=== PATIENT | female | born 1990 | race Two or more races ===

== ENCOUNTER → 2022-04-23 | Outpatient (CLI) | payer MEDICAID ==
[2022-04-23 10:46] LABS: Basophils # (auto) 0 10 ^3/uL (0-0.2); Basophils % (auto) 0.5 % (0.0-2.0); Eosinophils # (auto) 0.1 10 ^3/uL (0-0.8); Eosinophils % (auto) 1.3 % (0.0-7.0); Hematocrit 40.5 % (36.0-46.0); Hemoglobin 13.4 g/dL (12.2-16.2); Lymphocytes # (auto) 2.6 10 ^3/uL (0.4-5.4); Lymphocytes % (auto) 28.4 % (10.0-50.0); Mean Corpuscular Hemoglobin 29.5 pg (28.0-32.0); Mean Corpuscular Hgb Conc. 33.2 g/dL (32.0-36.0); Mean Corpuscular Volume 88.9 fL (80.0-100.0); Monocytes # (auto) 0.6 10 ^3/uL (0-1.3); Monocytes % (auto) 6.3 % (0.0-12.0); Neutrophils # (auto) 5.9 10 ^3/uL (1.6-8.6); Neutrophils % (auto) 63.5 % (37.0-80.0); Nucleated Red Blood Cells % 0.1 %; Red Blood Cells 4.55 10^6/uL (4.0-5.20); Red Cell Distribution Width 12.6 % (11.8-14.3); White Blood Cell 9.3 10^3/uL (4.4-10.8)
[2022-04-23 11:53] LABS: Alcohol, Urine < 3.0 mg/dL (0-10); Amphetamine Screen, Urine NEGATIVE (NEGATIVE); Barbiturate Scree,Urine NEGATIVE (NEGATIVE); Benzodiazephine Screen, Urine NEGATIVE (NEGATIVE); Cannabinoid Screen, Urine NEGATIVE (NEGATIVE); Cocaine Screen, Urine NEGATIVE (NEGATIVE); Opiate Scree,Urine NEGATIVE (NEGATIVE); Phencyclidine Screen, Urine NEGATIVE (NEGATIVE)
[2022-04-24 06:07] LABS: RPR Non Reactive (Non Reactive)
== END | disposition home or self-care (01) ==
LOC: LAB 09:53
PROVIDERS: ATTEND Obstetrics & Gynecology
DX: Z34.80 Encounter for supervision of other normal pregnancy, unspecified trimester (principal); N39.0 Urinary tract infection, site not specified; Z31.430 Encounter of female for testing for genetic disease carrier status for procreative management; Z3A.00 Weeks of gestation of pregnancy not specified
CPT/HCPCS: 36415; 80307; 83036; 84112; 84702; 85025; 86592; 86703; 86762; 86850; 86900; 86901; 87086; 87340

== ENCOUNTER 2022-10-16 11:41 | Observation (INO) | payer MEDICAID | END 2022-10-16 13:00 | disposition home or self-care (01) | LOC: LDRP 11:41 | PROVIDERS: ADMIT Obstetrics & Gynecology; ATTEND Obstetrics & Gynecology | DX: O99.891 Other specified diseases and conditions complicating pregnancy (principal); N13.30 Unspecified hydronephrosis; Z3A.34 34 weeks gestation of pregnancy | CPT/HCPCS: 59025; 81002; 94760; G0378 ==

== ENCOUNTER 2022-10-23 08:55 | Observation (INO) | payer MEDICAID ==
[~2022-10-23] VITALS: Ht 160 cm; Wt 82.6 kg
== END 2022-10-23 10:13 | disposition home or self-care (01) ==
LOC: LDRP 08:55
PROVIDERS: ADMIT Obstetrics & Gynecology; ATTEND Obstetrics & Gynecology
DX: O24.419 Gestational diabetes mellitus in pregnancy, unspecified control (principal); O99.891 Other specified diseases and conditions complicating pregnancy; N13.30 Unspecified hydronephrosis; Z3A.35 35 weeks gestation of pregnancy
CPT/HCPCS: 59025; 81002; 94760; G0378

== ENCOUNTER 2022-10-30 09:02 | Observation (INO) | payer MEDICAID | END 2022-10-30 10:43 | disposition home or self-care (01) | LOC: LDRP 09:02 → UNDOADMOB 09:02 → LDRP 09:48 → UNDODISOB 10:43 | PROVIDERS: ADMIT Obstetrics & Gynecology; ATTEND Obstetrics & Gynecology | DX: O99.891 Other specified diseases and conditions complicating pregnancy (principal); N13.30 Unspecified hydronephrosis; O09.33 Supervision of pregnancy with insufficient antenatal care, third trimester; O35.8XX0 Maternal care for other (suspected) fetal abnormality and damage, not applicable or unspecified; Z3A.36 36 weeks gestation of pregnancy | CPT/HCPCS: 59025; 81002; 94760 ==

== ENCOUNTER 2022-11-06 09:12 | Observation (INO) | payer MEDICAID ==
[2022-11-06] MEDS ORDERED: PREN1TAB71 OR (09:58)
== END 2022-11-06 10:38 | disposition home or self-care (01) ==
LOC: UNDOADMOB 09:12 → LDRP 09:12 → UNDODISOB 10:38
PROVIDERS: ADMIT Obstetrics & Gynecology; ATTEND Obstetrics & Gynecology
DX: O99.891 Other specified diseases and conditions complicating pregnancy (principal); N13.30 Unspecified hydronephrosis; Z3A.37 37 weeks gestation of pregnancy
CPT/HCPCS: 59025; 81002; 94760; G0378

== ENCOUNTER 2022-11-13 08:55 | Observation (INO) | payer MEDICAID ==
[~2022-11-13 08:55] MED LIST: PREN1TAB71 OR
== END 2022-11-13 10:30 | disposition home or self-care (01) ==
LOC: LDRP 08:55 → UNDOADMOB 08:55 → LDRP 09:03 → UNDODISOB 10:30
PROVIDERS: ADMIT Obstetrics & Gynecology; ATTEND Obstetrics & Gynecology
DX: O99.891 Other specified diseases and conditions complicating pregnancy (principal); N13.30 Unspecified hydronephrosis; Z3A.38 38 weeks gestation of pregnancy
CPT/HCPCS: 59025; 81002; 94760; G0378

== ENCOUNTER 2022-11-20 09:00 | Observation (INO) | payer MEDICAID ==
[2022-11-20 11:37] LABS: Fern Testing Negative
== END 2022-11-20 12:32 | disposition home or self-care (01) ==
LOC: UNDOADMOB 09:00 → LDRP 09:00 → UNDODISOB 12:32
PROVIDERS: ADMIT Obstetrics & Gynecology; ATTEND Obstetrics & Gynecology
DX: O99.891 Other specified diseases and conditions complicating pregnancy (principal); N13.30 Unspecified hydronephrosis; O26.893 Other specified pregnancy related conditions, third trimester; N89.8 Other specified noninflammatory disorders of vagina; Z3A.39 39 weeks gestation of pregnancy
CPT/HCPCS: 59025; 76818; 81002; 84112; 96360; 96361; G0378; Q0114

== ENCOUNTER 2022-11-23 23:54 | Inpatient (IN) | payer MEDICAID ==
[~2022-11-23] VITALS: Ht 160 cm; Wt 84.4 kg
[2022-11-24] MEDS ORDERED: PROMETHAZINE HCL 25 MG/ML 1ML IV PRN (00:15)
[2022-11-24] MEDS ORDERED: PHISODERM TOP SOLN 240ML BTL TOP PRN (00:15)
[2022-11-24] MEDS ORDERED: LIDOCAINE 2%HCL (LOCAL ANESTH.) INJ 20ML MDV IJ PRN (00:15)
[2022-11-24] MEDS ORDERED: WITCH HAZEL-GLYCERIN PAD TOP PRN (00:15)
[2022-11-24] MEDS ORDERED: DERMOPLAST 60ML BOTTLE TOP PRN (00:15)
[2022-11-24 00:39] LABS: Basophils # (auto) 0 10 ^3/uL (0-0.2); Basophils % (auto) 0.4 % (0.0-2.0); Eosinophils # (auto) 0.1 10 ^3/uL (0-0.8); Eosinophils % (auto) 1.2 % (0.0-7.0); Hematocrit 35.8 % (36.0-46.0); Hemoglobin 11.9 g/dL (12.2-16.2); Lymphocytes # (auto) 2.5 10 ^3/uL (0.4-5.4); Lymphocytes % (auto) 22.6 % (10.0-50.0); Mean Corpuscular Hemoglobin 30.3 pg (28.0-32.0); Mean Corpuscular Hgb Conc. 33.3 g/dL (32.0-36.0); Mean Corpuscular Volume 91.2 fL (80.0-100.0); Monocytes # (auto) 0.9 10 ^3/uL (0-1.3); Neutrophils # (auto) 7.4 10 ^3/uL (1.6-8.6); Neutrophils % (auto) 67.8 % (37.0-80.0); Nucleated Red Blood Cells % 0.1 %; Red Blood Cells 3.93 10^6/uL (4.0-5.20); Red Cell Distribution Width 14.7 % (11.8-14.3)
[2022-11-24 00:54] LABS: Urine Bacteria FEW /hpf (None Seen); Urine Blood Negative /uL (Negative); Urine Clarity HAZY (Clear); Urine Color Yellow (Yellow); Urine Mucus FEW (None Seen); Urine Protein, UAD Negative (Negative); Urine Specific Gravity 1.019 (1.001-1.035); Urine Urobilinogen Normal (Negative); Urine WBC 1 /hpf (0 - 5)
[2022-11-24 00:56] LABS: Albumin 2.7 g/dL (3.4-5.0); BUN/Creatinine Ratio 14.3 (10.0-20.0); Calcium 8.5 mg/dL (8.5-10.1); Potassium 3.6 mmol/L (3.5-5.1)
[2022-11-24 00:59] LABS: Bilirubin, Total 0.1 mg/dL (0.2-1.0); Total Protein 6.6 g/dL (6.4-8.2)
[2022-11-24 01:03] LABS: INR 0.95 (0.9-1.15); Partial Thromboplastin Time 25.9 SEC (24.5-34.5)
[2022-11-24 01:07] LABS: Alcohol, Urine < 3.0 mg/dL (0-10); Amphetamine Screen, Urine NEGATIVE (NEGATIVE); Cannabinoid Screen, Urine NEGATIVE (NEGATIVE)
[2022-11-24] MEDS: LACTATED RINGER'S 1,000 ML IV SCH ×2 (01:15→08:08)
[2022-11-24 01:19] LABS: Barbiturate Scree,Urine NEGATIVE (NEGATIVE); Benzodiazephine Screen, Urine NEGATIVE (NEGATIVE); Cocaine Screen, Urine NEGATIVE (NEGATIVE); Opiate Scree,Urine NEGATIVE (NEGATIVE); Phencyclidine Screen, Urine NEGATIVE (NEGATIVE)
[2022-11-24] MEDS ORDERED: miSOPROStol 50 MCG per PRE-CUT 1/2 TAB PO PRN (02:00)
[2022-11-24] MEDS ORDERED: LIDOCAINE 1%-Mpf/Epinephrine 1:200,000 30ml VIAL IJ ONE (07:00)
[2022-11-24] MEDS ORDERED: ROPIVACAINE HCL 200 ML EPI SCH (07:00)
[2022-11-24] MEDS ORDERED: LACT. RINGERS/OXYTOCIN 20UNITS 500 ML IV ONE ×2 (07:00→07:30)
[2022-11-24] MEDS ORDERED: LACTATED RINGER'S 500 ML IV ONE (07:00)
[2022-11-24] MEDS ORDERED: LIDOCAINE HCL 2 %PF INJ 10ML AMP IJ ONE ×2 (07:00→07:05)
[2022-11-24] MEDS ORDERED: ePHEDrine SULFATE 50 MG/ML AMP IV ONE (07:00)
[2022-11-24] MEDS ORDERED: fentaNYL CITRATE 100 MCG/2 ML VL IV ONE ×2 (07:00)
[2022-11-24] MEDS ORDERED: NALOXONE HCL 0.4 MG/ML VIAL IV ONE (07:00)
[2022-11-24] MEDS ORDERED: fentaNYL CITRATE 100 MCG/2 ML VL ONE (07:05)
[2022-11-24] MEDS ORDERED: ePHEDrine SULFATE 50 MG/ML AMP ONE (07:05)
[2022-11-24] MEDS ORDERED: ROPIVACAINE HCL 200 ML ONE (07:05)
[2022-11-24] MEDS ORDERED: LACT. RINGERS/OXYTOCIN 20UNITS 1,000 ML IV ONE (07:06)
[2022-11-24] MEDS ORDERED: FAMOTIDINE (10MG/ML) 2ML VL IV ONE (08:30)
[2022-11-24] MEDS ORDERED: METHYLERGONOVINE MALEATE 0.2 MG/ML AMP IM ONE (10:30)
[2022-11-24] MEDS ORDERED: ONDANSETRON HCL 4 MG/2 ML VIAL IV PRN (10:30)
[2022-11-24 11:00] VITALS: PULSE 111; RESP 18
[2022-11-24] MEDS: ACETAMINOPHEN 325 MG TAB PO PRN ×3 (12:10→23:28)
[2022-11-24] MEDS: IBUPROFEN 600 MG TAB PO PRN ×2 (13:24→19:25)
[2022-11-24 15:16] VITALS: BP 117/71; PULSE 97; RESP 18; TEMP 98.6
[2022-11-24 19:00] VITALS: BP 117/70; PULSE 107; RESP 19; TEMP 98.9; O2SAT 98
[2022-11-24] MEDS: SIMETHICONE 80 MG CHEWABLE TABLET PO SCH (21:04)
[2022-11-24 22:45] VITALS: BP 114/68; PULSE 88; RESP 17; TEMP 98.2; O2SAT 98
[2022-11-25] MEDS: IBUPROFEN 600 MG TAB PO PRN (06:00)
[2022-11-25] MEDS: SIMETHICONE 80 MG CHEWABLE TABLET PO SCH (06:00)
[2022-11-25 07:00] VITALS: BP 118/73; PULSE 87; RESP 18; TEMP 97.7; O2SAT 97
[2022-11-25] MEDS ORDERED: DOCUSATE CALCIUM 240 MG CAP PO SCH (10:00)
[2022-11-25] MEDS: ACETAMINOPHEN 325 MG TAB PO PRN (10:28)
[2022-11-27 03:07] LABS: RPR Non Reactive (Non Reactive)
[2022-11-27 19:06] LABS: Treponema pallidum Ab (FTA-Ab) Non Reactive (Non Reactive)
== END 2022-11-25 11:50 | disposition home or self-care (01) | DRG 560 ==
LOC: LDRP 23:54
PROVIDERS: ADMIT Obstetrics & Gynecology; ATTEND Obstetrics & Gynecology
PROC: 10E0XZZ Delivery of Products of Conception, External Approach (ICD-10-PCS; principal; 2022-11-24)
PROC: 0KQM0ZZ Repair Perineum Muscle, Open Approach (ICD-10-PCS; 2022-11-24)
PROC: 3E0R3BZ Introduction of Anesthetic Agent into Spinal Canal, Percutaneous Approach (ICD-10-PCS; 2022-11-24)
PROC: 00HU33Z Insertion of Infusion Device into Spinal Canal, Percutaneous Approach (ICD-10-PCS; 2022-11-24)
DX: O69.81X0 Labor and delivery complicated by cord around neck, without compression, not applicable or unspecified (principal); Z37.0 Single live birth; O70.1 Second degree perineal laceration during delivery; Z3A.39 39 weeks gestation of pregnancy
CPT/HCPCS: 36415; 59025; 59409; 62282; 80053; 80307; 81001; 85025; 85610; 85730; 86592; 86850; 86900; 86901; 94760; 96360; 96361; 96365; 96366; G0378; J2405; J2590; J3490